=== PATIENT | female | born 1960 | race Caucasian/White ===

== ENCOUNTER 2016-10-15 23:09 | Emergency (ER) | payer BC ==
[2016-10-15] MEDS ORDERED: NS 0.9% 1000 ML* 1,000 ML IV ONE (23:40)
[2016-10-15] MEDS ORDERED: Ondansetron INJ* 2 MG/ML VIAL IV ONE (23:40)
[2016-10-15] MEDS ORDERED: Morphine INJ* 4 MG/ML 1 ML SYRINGE IV ONE (23:40)
[2016-10-15] MEDS ORDERED: Morphine INJ* 2 MG/ML 1 ML SYRINGE IV ONE (23:52)
[2016-10-16 00:09] LABS: Hematocrit 40 % (35-47); Hemoglobin 13.6 g/dl (12.0-16.0); Mean Corpuscular HGB Conc 34 g/dl (31-36); Mean Corpuscular Hemoglobin 32 pg (27-31); Mean Corpuscular Volume 95 fL (80-97); Mean Platelet Volume 8 um3 (7.4-10.4); Red Blood Count 4.22 10^6/ul (4.0-5.4); Red Cell Distribution Width 13 % (10.5-15); White Blood Count 7.9 10^3/ul (3.5-10.8)
[2016-10-16 00:21] LABS: ALT 20 U/L (7-52); AST 19 U/L (13-39); Albumin 4.6 g/dL (3.2-5.2); Alkaline Phosphatase 64 U/L (34-104); Amylase 396 U/L (29-103); Anion Gap 8 mmol/L (2-11); BUN/Creatinine Ratio 15.9 (8-20); Blood Urea Nitrogen 11 mg/dL (6-24); C Reactive Protein < 1.00 mg/L (< 5.00); CO2 Carbon Dioxide 26 mmol/L (22-32); Calcium 10.3 mg/dL (8.6-10.3); Chloride 97 mmol/L (101-111); EGFR African American 112.8 (>60); EGFR Non-African American 87.7 (>60); Globulin 3.1 g/dL (2-4); Glucose 182 mg/dL (70-100); Lipase 27 U/L (11.0-82.0); Potassium 3.8 mmol/L (3.5-5.0); Sodium 131 mmol/L (133-145); Total Protein 7.7 g/dL (6.4-8.9)
[2016-10-16] MEDS ORDERED: Morphine INJ* 4 MG/ML 1 ML SYRINGE IV ONE (00:28)
[2016-10-16] MEDS ORDERED: Ondansetron INJ* 2 MG/ML VIAL IV ONE (00:32)
[2016-10-16] MEDS ORDERED: NS 0.9% 1000 ML* 1,000 ML IV ONE (01:02)
--- NOTE | 2016-10-16 01:10 | ED ---
Abdominal Pain/Female - HPI Summary HPI Summary: Patient presents with diffuse abdominal pain that began today without known cause. She was well yesterday and has not recently been ill. She presented to [facility] where her urine was negative. She was referred to the ED but declined. She was discharged with Zofran for nausea with the understanding that if her symptoms worsened she should report to the ED. Her symptoms did get worse and she vomited because she didn't take the zofran. She denies fever, diarrhea, constipation, CP, or SOB. She has mild back pain but no history of kidney stone or heart disease. She no longer has her period and denies vaginal discharge. - History of Current Complaint Chief Complaint: EDAbdPain Stated Complaint: ABD PAIN Time Seen by Provider: 10/15/16 23:26 Hx Obtained From: Patient ?: No Onset/Duration: Gradual Onset - throughout the day Timing: Constant Severity Initially: Moderate Severity Currently: Severe Pain Intensity: 10 Location: Diffuse Radiates: Yes Radiates to: Flank - right Character: Sharp, Cramping Aggravating Factor(s): Movement Alleviating Factor(s): Nothing Associated Signs and Symptoms: Positive: Nausea Allergies/Adverse Reactions: Allergies Allergy/AdvReac Type Severity Reaction Status Date / Time Penicillins AdvReac Intermediate Itching Verified 10/05/16 10:49 PMH/Surg Hx/FS Hx/Imm Hx Endocrine/Hematology History: Denies: Hx Anticoagulant Therapy, Hx Diabetes Cardiovascular History: Denies: Hx Hypertension, Hx Pacemaker/ICD, Hx Valvular Heart Disease Respiratory History: Reports: Hx Sleep Apnea - needs equipment set up Denies: Hx Asthma GI History: Denies: Other GI Disorders History: Denies: Hx Renal Disease, Other Problems/Disorders Musculoskeletal History: Denies: Hx Rheumatoid Arthritis, Other Musculoskeletal History Sensory History: Reports: Hx Contacts or Glasses Denies: Hx Hearing Aid Opthamlomology History: Reports: Hx Contacts or Glasses Neurological History: Denies: Other Neuro Impairments/Disorders Psychiatric History: Denies: Hx Panic Disorder, Other Psychiatric Issues/Disorders - Cancer History Hx Chemotherapy: No Hx Radiation Therapy: No - Surgical History Surgery Procedure, Year, and Place: [facility]ENO[facility]. APPENDIX Infectious Disease History: No Infectious Disease History: Denies: Traveled Outside the [place] in Last 30 Days - Family History Known Family History: Positive: None, Hypertension - Social History Occupation: Employed Full-time Lives: With Family Alcohol Use: Occasionally Alcohol Amount: wine 1-2 Substance Use Type: Reports: None Hx Tobacco Use: No Smoking Status (MU): Former Smoker Type: Cigarettes Amount Used/How Often: 1/2 ppd Length of Time of Smoking/Using Tobacco: 5 years Have You Smoked in the Last Year: No Review of Systems Negative: Fever, Chills Negative: Chest Pain Negative: Shortness Of Breath Positive: Abdominal Pain, Vomiting, Nausea. Negative: Diarrhea All Other Systems Reviewed And Are Negative: Yes Physical Exam Triage Information Reviewed: Yes Vital Signs On Initial Exam: Initial Vitals Temp Pulse Resp BP Pulse Ox 99.2 F 96 20 156/71 100 10/15/16 23:17 10/15/16 23:17 10/15/16 23:17 10/15/16 23:17 10/15/16 23:17 Vital Signs Reviewed: Yes Appearance: Positive: Well-Appearing, Well-Nourished, Pain Distress Skin: Positive: Warm, Skin Color Reflects Adequate Perfusion, Dry, Soft Head/Face: Positive: Normal Head/Face Inspection Eyes: Positive: EOMI, JULIETH, Conjunctiva Clear ENT: Positive: Hearing grossly normal Respiratory/Lung Sounds: Positive: Clear to Auscultation, Breath Sounds Present Cardiovascular: Positive: RRR Abdomen Description: Positive: Soft, Guarding. Negative: Nontender - diffusely TTP, CVA Tenderness (R), CVA Tenderness (L), Distended Bowel Sounds: Positive: Present Musculoskeletal: Negative: Edema Left, Edema Right Neurological: Positive: Sensory/Motor Intact, Alert, Oriented to Person Place, Time, NV Bundle Intact Distally Psychiatric: Positive: Affect/Mood Appropriate AVPU Assessment: Alert - Iesha Coma Scale Coma Scale Total: 15 Diagnostics - Vital Signs Vital Signs Temp Pulse Resp BP Pulse Ox 10/16/16 00:39 16 10/16/16 00:01 99.2 F 96 20 156/71 100 10/16/16 00:00 20 10/15/16 23:17 99.2 F 96 20 156/71 100 - Laboratory Lab Results: Lab Results 10/15/16 10/15/16 10/15/16 Range/Units 23:53 23:53 23:53 WBC 7.9 (3.5-10.8) 10^3/ul RBC 4.22 (4.0-5.4) 10^6/ul Hgb 13.6 (12.0-16.0) g/dl Hct 40 (35-47) % MCV 95 (80-97) fL MCH 32 H (27-31) pg MCHC 34 (31-36) g/dl RDW 13 (10.5-15) % Plt Count 231 (150-450) 10^3/ul MPV 8 (7.4-10.4) um3 Neut % (Auto) 74.4 (38-83) % Lymph % (Auto) 16.7 L (25-47) % [place] % (Auto) 6.7 (1-9) % Eos % (Auto) 1.5 (0-6) % Baso % (Auto) 0.7 (0-2) % Absolute Neuts (auto) 5.9 (1.5-7.7) 10^3/ul Absolute Lymphs (auto) 1.3 (1.0-4.8) 10^3/ul Absolute Monos (auto) 0.5 (0-0.8) 10^3/ul Absolute Eos (auto) 0.1 (0-0.6) 10^3/ul Absolute Basos (auto) 0.1 (0-0.2) 10^3/ul Absolute Nucleated RBC 0 10^3/ul Nucleated RBC % 0 Sodium 131 L (133-145) mmol/L Potassium 3.8 (3.5-5.0) mmol/L Chloride 97 L (101-111) mmol/L Carbon Dioxide 26 (22-32) mmol/L Anion Gap 8 (2-11) mmol/L BUN 11 (6-24) mg/dL Creatinine 0.69 (0.51-0.95) mg/dL Est GFR ( Amer) 112.8 (>60) Est GFR (Non-Af Amer) 87.7 (>60) BUN/Creatinine Ratio 15.9 (8-20) Glucose 182 H (70-100) mg/dL Lactic Acid 1.1 (0.5-2.0) mmol/L Calcium 10.3 (8.6-10.3) mg/dL Total Bilirubin 0.70 (0.2-1.0) mg/dL AST 19 (13-39) U/L ALT 20 (7-52) U/L Alkaline Phosphatase 64 (34-104) U/L Troponin I 0.00 (<0.04) ng/mL C-Reactive Protein < 1.00 (< 5.00) mg/L Total Protein 7.7 (6.4-8.9) g/dL Albumin 4.6 (3.2-5.2) g/dL Globulin 3.1 (2-4) g/dL Albumin/Globulin Ratio 1.5 (1-3) Amylase 396 H (29-103) U/L Lipase 27 (11.0-82.0) U/L Result Diagrams: 10/15/16 23:53 10/15/16 23:53 Lab Statement: Any lab studies that have been ordered have been reviewed, and results considered in the medical decision making process. - Radiology No standard instances Xray Interpretation: No Acute Changes Radiology Interpretation Completed By: Radiologist - CT No standard instances CT Interpretation: No Acute Changes CT Interpretation Completed By: Radiologist Re-Evaluation - Re-Evaluation First Eval Re-Evaluation Time: 00:15 Change: Improved - pain has decreased Second Eval Re-Evaluation Time: 00:30 Change: Worse - pain has increased Comment: pain has returned Third Eval Re-Evaluation Time: 01:10 Change: Improved Comment: resting comfortably Abdominal Pain Fem Course/Dx - Diagnoses Differential Diagnosis: Positive: Bowel Obstruction, Constipation, Hepatitis, Pancreatitis, Renal Colic Provider Diagnoses: Abdominal pain of unknown etiology - Provider Notifications Discussed Care Of Patient With: Dr. Cardona, ED attending Time Discussed With Above Provider: 01:50 Instructed by Provider To: Have Pt Call For Appt. Discharge - Discharge Plan Condition: Stable Disposition: HOME Prescriptions: Ondansetron ODT TAB* [Zofran 4 MG Odt TAB*] 4 mg PO Q6H PRN #20 tab.odt PRN Reason: Nausea/Vomiting traMADol TAB* [Ultram*] 50 mg PO Q6HR PRN #12 tab MDD 4 PRN Reason: Pain Patient Education Materials: Acute Abdominal Pain (ED) Forms: *Work Release Referrals: Vonnie Steven NP [Primary Care Provider] - Additional Instructions: Please use the anti-nausea medication and pain medication as needed. Call your primary care provider tomorrow for an appointment to be seen in 1-2 days for re- evaluation. Drink extra fluids and rest. Return to the emergency department if symptoms worsen.
[2016-10-16] MEDS ORDERED: NS 0.9% IV ONE (01:45)
[2016-10-16] MEDS ORDERED: PROTAMINE SULFATE IV ONE (01:45)
[2016-10-16] MEDS ORDERED: Ketorolac INJ* 30 MG/ML 1 ML VIAL IV ONE (01:53)
[2016-10-16 04:16] VITALS: BP 127/57
--- NOTE | 2016-10-16 07:44 | RAD ---
HISTORY: Abdominal pain COMPARISONS: None VIEWS: Frontal views of the abdomen. FINDINGS: BOWEL: There is a nonobstructive bowel gas pattern. There is a moderate amount of stool within the colon. CALCULI: Calcified uterine fibroids are noted. Surgical clips are noted in the right lower abdomen BONES AND SOFT TISSUES: There are no osseous abnormalities. OTHER FINDINGS: The lung bases are clear. There is no subphrenic gas. IMPRESSION: NONOBSTRUCTIVE BOWEL GAS PATTERN.
--- NOTE | 2016-10-16 07:47 | RAD ---
CLINICAL HISTORY: Abdominal pain, elevated amylase COMPARISON: None TECHNIQUE: Multiple contiguous axial CT scans were obtained of the abdomen and pelvis, without intravenous contrast enhancement. Coronal and sagittal multiplanar reformations are submitted for review. Oral contrast was not administered. FINDINGS: The study is limited by the lack of intravenous contrast. This limits evaluation of the solid organs and vasculature. LUNG BASES: The lung bases are clear. LIVER: The liver is enlarged measuring 20 cm in long axis. BILE DUCTS: There is no intrahepatic or extrahepatic biliary dilatation. GALLBLADDER: The gallbladder is normal, without pericholecystic inflammatory change. PANCREAS: The pancreas is normal, without mass or ductal dilatation. There is no appreciable peripancreatic inflammatory change. SPLEEN: Normal in size and appearance. UPPER GI TRACT: Evaluation of the gastrointestinal tract is limited by incomplete gastric distention. The upper GI tract is unremarkable. SMALL BOWEL AND MESENTERY: The small bowel is normal in contour, course, and caliber. There is no obstruction or dilatation. COLON: There are multiple diverticula of the sigmoid colon. There is no pericolonic inflammatory change. Surgical clips are noted in the right lower quadrant ADRENALS: Normal bilaterally. KIDNEYS: There are punctate calculi of the renal calyces, without hydronephrosis BLADDER: The bladder is smooth in contour. PELVIC ORGANS: There are calcified uterine fibroids AORTA: The aorta is normal. IVC: Unremarkable LYMPH NODES: There is no lymphadenopathy by size criteria. ABDOMINAL WALL: There is no evidence for abdominal wall hernia. BONES AND SOFT TISSUES: There are mild diffuse degenerative changes. OTHER: None IMPRESSION: HEPATOMEGALY. DIVERTICULOSIS. NONOBSTRUCTING BILATERAL RENAL CALYCEAL STONES
== END 2016-10-16 04:34 | disposition home or self-care (01) ==
LOC: ED 23:09
DX: R10.84 Generalized abdominal pain (principal); Z87.891 Personal history of nicotine dependence; R11.2 Nausea with vomiting, unspecified
CPT/HCPCS: 36415; 74000; 74176; 80053; 82150; 83605; 83690; 84484; 85025; 86140; 96374; 96375; 99282; J1885; J2270; J2405

== ENCOUNTER 2022-03-02 10:17 | Observation (INO) ==
[~2022-03-02 10:17] MED LIST: Buffered Lidocaine 1% SYRIN 1 ml INTRADERM ONE; Lactated Ringers 1000 ml BAG 1,000 ML IV SCH; Lidocaine 2% PF 5 ML VIAL ONE; Midazolam 5 mg/5 ml VIAL 1 mg/ml 5 ml VIAL (5 mg) ONE; Ondansetron 4 mg VIAL 2 MG/ML 2 ml VIAL IV PRN; Ondansetron 4 mg VIAL 2 MG/ML 2 ml VIAL ONE; Prochlorperazine 5 mg/ml 2 ml VIAL (10 mg) IV PRN; Propofol 10 MG/ML 20 ML BTL ONE; Rocuronium 50 mg VIAL 10 mg/ml 5 ml VIAL (50 mg) ONE; Sevoflurane BOTTLE ONE; fentaNYL 100 mcg/2 ml 50 MCG/ML VIAL IV PRN; fentaNYL 250 mcg/5 ml 50 MCG/ML 5 ml VIAL (250 MCG) ONE
[2022-03-02] MEDS ORDERED: Heparin 5000 UNITS/ML 1 mL VIAL ONE (10:44)
[2022-03-02] MEDS ORDERED: Bupivacaine 0.5% SDV PF 30ML VIAL ONE (10:44)
[2022-03-02] MEDS ORDERED: Chlorhexidine MOUTHWASH 0.12% 15 ML UDC ONE (10:45)
[2022-03-02] MEDS ORDERED: Lidocaine 2% w EPI 1:100,000 20 ML MDV VIAL ONE (10:47)
[2022-03-02] MEDS ORDERED: Scopolamine 1 mg/72hr PATCH ONE (10:50)
[2022-03-02] MEDS ORDERED: ceFAZolin 2 GM in NS PREMIX 2 GM/100 ML BAG IVPB ONE (10:51)
[2022-03-02] MEDS ORDERED: Ondansetron ODT 4 mg TAB 4 MG TAB ONE (10:51)
[2022-03-02] MEDS ORDERED: Phenylephrine 40 mcg/mL 10mL (400mcg) SYRINGE ONE (12:34)
[2022-03-02] MEDS ORDERED: Metoclopramide 5 MG/ML VIAL (10 mg) ONE (12:37)
[2022-03-02] MEDS ORDERED: Phenylephrine IV 10 MG/ML 1 ml VIAL ONE (12:56)
[2022-03-02] MEDS ORDERED: Rocuronium 50 mg VIAL 10 mg/ml 5 ml VIAL (50 mg) ONE (12:59)
[2022-03-02] MEDS ORDERED: Sterile Water for Inj 10 ML ONE (13:08)
[2022-03-02] MEDS ORDERED: fentaNYL 100 mcg/2 ml 50 MCG/ML VIAL ONE ×2 (14:07→14:31)
[2022-03-02] MEDS ORDERED: HYDROmorphone 0.5 MG/0.5 ML SYRINGE ONE ×2 (15:14→15:28)
[2022-03-02] MEDS ORDERED: Propofol 10 MG/ML 20 ML BTL ONE (15:26)
[2022-03-02] MEDS ORDERED: ceFAZolin VIAL VIAL ONE (16:00)
[2022-03-02] MEDS ORDERED: D5LR 1000 ml BAG 1,000 ML IV SCH (17:00)
[2022-03-03 10:42] VITALS: BP 119/71
== END 2022-03-03 15:20 | disposition home or self-care (01) ==
LOC: INTOOBSV 10:17 → AA 10:17 → EDSTATUS 11:30 → SSU 16:32
PROVIDERS: ADMIT Obstetrics & Gynecology; ATTEND Obstetrics & Gynecology